=== PATIENT | female | born 1980 | race Hispanic/Latino ===

== ENCOUNTER 2017-06-18 07:14 | Inpatient (IN) ==
[2017-06-18] MEDS ORDERED: ZOFRAN IV ONE (07:41)
[2017-06-18] MEDS ORDERED: NS 1,000 ML IV ONE (07:41)
[2017-06-18] MEDS ORDERED: MORPHINE IV ONE (07:41)
[2017-06-18 08:01] LABS: MANUAL DIFF NEEDED? NO
[2017-06-18 08:06] LABS: BASO% 0.3 % (0.0-0.8); EOS# 0.11 X1000 (0.0-0.7); EOS% 0.9 % (0.0-10.0); HEMATOCRIT 37.3 % (37.0-47.0); HEMOGLOBIN 12.5 g/dL (12.0-16.0); IMM GRAN# 0.02 X1000 (0.0-0.04); IMM GRAN% 0.2 % (0.0-0.5); LYMPH# 1.54 X1000 (1.2-3.4); MCH 27.1 PG (27-31); MCHC 33.5 g/dL (33-37); MCV 80.9 FL (81-99); MONO# 0.43 X1000 (0.11-0.59); MONO% 3.6 % (1.7-9.3); MPV 11.8 FL (7.4-10.4); PLT 230 X1000 (130-400); RBC 4.61 XMIL (4.2-5.4)
[2017-06-18 08:28] LABS: AGAP 9; ALKALINE PHOSPHATASE 98 U/L (32-104); AMYLASE 62 U/L (20-200); BUN 8 mg/dL (8-22); CALCIUM 8.5 mg/dL (8.8-10.2); CHLORIDE 101 mmol/L (98-107); COSMO 266; GOT 23 U/L (10-30); GPT 19 U/L (10-36); LIPASE 32 U/L (13-60); POTASSIUM 3.5 mmol/L (3.5-5.1); SODIUM 133 mmol/L (136-145); TCO2 24 mmol/L (25-35); TOTAL PROTEIN 7.8 g/dL (6.3-8.3)
--- NOTE | 2017-06-18 09:40 | Diag Imaging Result Doc PS360 ---
US GB < RUQ (LIMITED) - 06/18/2017 INDICATION: RUQ pain with N/V TECHNIQUE: COMPARISON: None FINDINGS: There are numerous relatively small shadowing gallstones filling about one third of the gallbladder lumen. No gallbladder wall thickening or surrounding free fluid. However, the patient is tender over the gallbladder. Common bile duct is normal measuring 4 mm. There is diffuse fatty change of the liver. Pancreas is obscured. Right kidney is normal. Aorta, IVC, and main portal vein are patent. IMPRESSION: 1. Numerous small gallstones in the gallbladder. Nonspecific tenderness over the gallbladder. 2. Hepatic steatosis. Electronically signed by Justin Jolley 06/18/2017 9:37 AM
--- NOTE | 2017-06-18 10:31 | Diag Imaging Result Doc PS360 ---
CT ABD/PELVIS W/ IV CONT ONLY - 06/18/2017 INDICATION: And pain TECHNIQUE: A CT dose reduction protocol was used. COMPARISON: Gallbladder ultrasound earlier today FINDINGS: The gallbladder is slightly distended. The slightly hyperdense material dependently in the gallbladder represents the shadowing stones visible on the ultrasound. No significant surrounding edema or fluid. There is a tiny cyst in the anterior liver measuring about 1 cm. The pancreas, spleen, adrenals, and kidneys are normal. There is moderate constipation of the proximal colon. No bowel obstruction or inflammation visible. Trace pelvic free fluid. Urinary bladder, uterus, and rectum are normal. Bones are intact. IMPRESSION: 1. Gallstones. Slightly abnormally distended gallbladder. A HIDA scan would be useful to exclude acute cholecystitis. 2. Constipation. Electronically signed by Jutsin Jolley 06/18/2017 10:29 AM
[2017-06-18] MEDS ORDERED: DILAUDID IV ONE (10:42)
[2017-06-18] MEDS ORDERED: ZOSYN 3.375 GM/NS 3.375 GM/50 ML IVPB IV ONE (10:42)
--- NOTE | 2017-06-18 10:45 | PROVIDER DOCUMENTATION ---
This chart was entered by Min Amador Scribe, acting as scribe for Hiram Clinton MD. HPI-Abdominal Pain/GI Problem - General Chief Complaint: Back Pain Stated Complaint: BACK PAIN Time Seen by Provider: 06/18/17 07:27 Source: patient, family Allergies/Adverse Reactions: Patient Allergies Allergy/AdvReac Type Severity Reaction Status Date / Time No Known Allergies Allergy Verified 06/18/17 07:21 Home Medications: Home Medication List Medication Instructions Recorded Confirmed Last Taken Type NK [No Home Medications] 06/18/17 06/18/17 Unknown History - History of Present Illness-ABD Nature of Presenting Problems: patient is a 37 y/o F that comes in with RUQ pain that radiates to right shoulder back. pain began last pm. no n/v/d, fever/chills, or shortness of breath. Abdominal Pain Onset Location: reports: RUQ Pain Radiation: reports: shoulder (right) Quality of Pain: reports: cramping, sharp Severity in ED: reports: moderate Onset/Duration: reports: abrupt, last night Timing: reports: still present, constant Activities at Onset: reports: none Modifying Factors: improves with: nothing Associated Symptoms: reports: back/neck pain, nausea. denies: diarrhea, dizziness, fever/chills, genitourinary problems, loss of appetite, shortness of breath, vomiting Similar Symptoms Previously?: No Recently seen or treated by another doctor?: No Review of Systems - Adult - REVIEW OF SYSTEMS - ADULT Constitutional: denies: chills, fever Eyes: reports: no symptoms reported Ears, Nose, Mouth & Throat: denies: ear discharge, ear pain, sinus problem, throat pain, throat swelling Cardiovascular: denies: chest pain, palpitations, syncope Respiratory: denies: cough, shortness of breath, wheezing Gastrointestinal: reports: abdominal pain, nausea. denies: diarrhea, vomiting Genitourinary: denies: dysuria, frequency, hematuria Musculoskeletal: denies: back pain, joint pain, neck pain Integumentary: reports: no symptoms reported Neurological: reports: no symptoms reported Psychiatric: reports: no symptoms reported Endocrine: reports: no symptoms reported Hematologic/Lymphatic: reports: no symptoms reported Allergic/Immunologic: reports: no symptoms reported All Other Systems: Reviewed and Negative Past History - Adult - PAST MEDICAL HISTORY-ADULT Review of Records: reports: Old Records Reviewed, Nursing Assessment Review, Medications Reviewed - PRIOR SURGERIES/PROCEDURES Surgical/Procedure History: reports: none - IMMUNIZATION STATUS Childhood Immunizations: See Nurse Assessment Flu Vaccine: See Nurse Assessment - FAMILY HISTORY Family History: reviewed, not pertinent - SOCIAL HISTORY Smoking: non-smoker Living Situation: family Physical Exam-General - PHYSICAL EXAM-ADULT Initial Vital Signs Reviewed: Yes - CONSTITUTIONAL General Appearance: alert, mild distress - EYES Eyes: PERRL/EOMI, pink conjunctivae - HEAD, EARS, NOSE, MOUTH & THROAT HENMT: normocephalic/atraumatic, moist mucous membranes, normal ENT inspection - NECK Neck: full range of motion, normal inspection - RESPIRATORY Respiratory: lungs clear, normal breath sounds, no respiratory distress, no accessory muscle use - CARDIOVASCULAR Cardiovascular: regular rate, rhythm, no edema - GASTROINTESTINAL (ABDOMEN) Abdominal Exam: normal bowel sounds, soft, no organomegaly, no pulsatile mass, tenderness (RUQ), Cabello's sign - MUSCULOSKELETAL Back Exam: no CVA tenderness, no vertebral tenderness Extremity: normal range of motion, normal inspection, no pedal edema - SKIN Integumentary: normal color, warm/dry - NEUROLOGIC Neurologic: broach trouble shooter II-XII nml as tested, no motor/sensory deficits - PSYCHIATRIC Psych/Mental Status: normal mood/affect, normal thought content, normal thought process, oriented x 3 Progress - PLAN OF CARE/RESULTS Progress/Plan/Lab Results: Vital Signs - 8 hr 06/18/17 07:19 Temperature 97.0 F L Pulse Rate 71 Respiratory Rate 18 Blood Pressure 102/72 O2 Sat by Pulse Oximetry 100 Laboratory Results - last 24 hr 06/18/17 06/18/17 07:53 07:53 WBC 11.86 H RBC 4.61 Hgb 12.5 Hct 37.3 MCV 80.9 L MCH 27.1 MCHC 33.5 RDW Std Deviation 14.6 H Plt Count 230 MPV 11.8 H Immature Gran % (Auto) 0.2 Neut % (Auto) 82.0 H Lymph % (Auto) 13.0 L [place] % (Auto) 3.6 Eos % (Auto) 0.9 Baso % (Auto) 0.3 Immature Gran # (Auto) 0.02 Neut # (Auto) 9.73 H Lymph # (Auto) 1.54 [place] # (Auto) 0.43 Eos # (Auto) 0.11 Baso # (Auto) 0.03 Sodium 133 L Potassium 3.5 Chloride 101 Carbon Dioxide 24 L Anion Gap 9 BUN 8 Creatinine 0.4 L Estimated GFR/1.73 m2 > 60 BUN/Creatinine Ratio 20 Glucose 117 H Calculated Osmolality 266 Calcium 8.5 L Total Bilirubin 0.30 AST 23 ALT 19 Alkaline Phosphatase 98 Total Protein 7.8 Albumin 4.0 Globulin 4.0 Albumin/Globulin Ratio 1.0 Amylase 62 Lipase 32 Orders Category Date Time Status Saline Loc DIRECTED Care 06/18/17 07:41 Active NPO Diet 06/18/17 07:41 Active US GB < RUQ (LIMITED) [US] Stat Exams 06/18/17 07:41 Ordered AMYLASE [CHEM] Stat Lab 06/18/17 07:53 Completed CBC WITH ELECTRONIC DIFF [HEME] Stat Lab 06/18/17 07:53 Completed COMPREHENSIVE METABOLIC PANEL [CHEM] Stat Lab 06/18/17 07:53 Completed LIPASE [CHEM] Stat Lab 06/18/17 07:53 Completed TEST-URINE [PREG] Stat Lab 06/18/17 07:[address] W/POSS RFLX CULT [URINALYSIS] Stat Lab 06/18/17 07:41 Ordered 0.9% Sodium Chloride Inj [Ns] 1,000 ml Med 06/18/17 07:41 Discontinued IV 999 mls/hr Morphine Med 06/18/17 07:41 Discontinued 4 mg IV NOW ONE Ondansetron [Zofran] Med 06/18/17 07:41 Discontinued 4 mg IV NOW ONE Vital Signs Temp Pulse Resp BP Pulse Ox 06/18/17 07:19 97.0 F L 71 18 102/72 100 No Known Allergies Allergy (Verified 06/18/17 07:21) NK [No Home Medications] 06/18/17 Dietary Diet NPO Start SatJun 18 741 Laboratory 06/18/17 06/18/17 07:53 07:53 WBC 11.86 H RBC 4.61 Hgb 12.5 Hct 37.3 MCV 80.9 L MCH 27.1 MCHC 33.5 RDW Std Deviation 14.6 H Plt Count 230 MPV 11.8 H Immature Gran % (Auto) 0.2 Neut % (Auto) 82.0 H Lymph % (Auto) 13.0 L [place] % (Auto) 3.6 Eos % (Auto) 0.9 Baso % (Auto) 0.3 Immature Gran # (Auto) 0.02 Neut # (Auto) 9.73 H Lymph # (Auto) 1.54 [place] # (Auto) 0.43 Eos # (Auto) 0.11 Baso # (Auto) 0.03 Sodium 133 L Potassium 3.5 Chloride 101 Carbon Dioxide 24 L Anion Gap 9 BUN 8 Creatinine 0.4 L Estimated GFR/1.73 m2 > 60 BUN/Creatinine Ratio 20 Glucose 117 H Calculated Osmolality 266 Calcium 8.5 L Total Bilirubin 0.30 AST 23 ALT 19 Alkaline Phosphatase 98 Total Protein 7.8 Albumin 4.0 Globulin 4.0 Albumin/Globulin Ratio 1.0 Amylase 62 Lipase 32 pt will be admitted to hospital to service, kerri given. Result Diagrams: 06/18/17 07:53 06/18/17 07:53 - CT/MRI 1 CT Study: Abdomen, Pelvis Impression: Abnormal CT Results: gallstones, slight distended gallbladder, constipation - ULTRASOUND (By Radiology) 1 US Study: Gallbladder Impression: Abnormal US Results: small gallstones(numerous), heptatic stenosis - CONSULTS/PCP/HOSPITALIST Notification #1 *Consult/PCP/Hospitalist*: Time Discussed: 10:39 Reason/Comments: send to [facility]. give kerri, will operate tomorrow Consult Disposition: Admit Departure - Departure Date of Disposition Decision: 06/18/17 Time of Disposition Decision: 10:43 DIAGNOSIS: Acute cholecystitis Disposition: ADMITTED INPATIENT 09 Certified Medical Emergency: Emergent Condition: Stable Referrals and Follow-Ups: None,PCP [Primary Care Provider] - - Critical Care Note This patient required my direct & personal management of CC.: No Attestation - Physician/ SCOTT Attestation The physician spent face to face time with patient:: Yes Advanced Practice Provider documentation review:: Supervising physician onsite and consulted in the evaluation and care of this patient. The physician did have a face to face encounter with the patient. This chart was documented by the indicated scribe, (Min Amador, Perla) and accurately reflects the services I performed and decisions made by me, Hiram Clinton MD, as attested by the provider's signature.
[2017-06-18 11:14] LABS: URINE CULTURE PL NEEDED? NO
[2017-06-18 11:37] LABS: BILIRUBIN URINE NEGATIVE (NEGATIVE); BLOOD URINE NEGATIVE (NEGATIVE); CLARITY CLEAR (CLEAR); COLOR YELLOW; GLUCOSE URINE NEGATIVE (NEGATIVE); LEUKOCYTES URINE NEGATIVE (NEGATIVE); NITRITE URINE NEGATIVE (NEGATIVE); PROTEIN URINE NEGATIVE (NEGATIVE); SP GRAVITY URINE 1.015; UROBILINOGEN URINE NORMAL
[2017-06-18 11:38] LABS: URINE CAST NONE SEEN /LPF; URINE CRYSTAL NONE SEEN /HPF; URINE EPITHELIAL CELLS <10 /HPF (<10); URINE RBC <10 /HPF (<10); URINE SOURCE CLEAN CATCH; URINE WBC <10 /HPF (<10)
[2017-06-18] MEDS ORDERED: ZOFRAN IV PRN (13:10)
--- NOTE | 2017-06-18 16:06 | HISTORY AND PHYSICAL ---
ADMITTING DIAGNOSIS: Cholecystitis. HISTORY OF PRESENT ILLNESS: A 37-year-old, female presented to the emergency department with right upper quadrant pain that radiated to her right shoulder and back that began 24 hours prior to presentation. She denies nausea, vomiting, diarrhea, fever, chills or shortness of breath. The pain is described as in the right upper quadrant. It is sharp and moderate in intensity. It has improved with pain medicine and she feels better somewhat since she has been admitted. She had a CT scan and ultrasound done in the emergency department at [facility] and she was found to have cholecystitis. It was felt that she need to be transferred here for definitive care. PAST MEDICAL HISTORY: None. PAST SURGICAL HISTORY: None. FAMILY HISTORY: Reviewed with patient but noncontributory. SOCIAL HISTORY: Nonsmoker. ALLERGIES: None. HOME MEDICATIONS: None. REVIEW OF SYSTEMS: A full 10 point review of systems was obtained and negative as specified in HPI. PHYSICAL EXAMINATION: VITAL SIGNS: Patient is currently afebrile. Her vital signs are stable. GENERAL EXAMINATION: In no acute distress. Alert, oriented, female, looks stated age. HEENT: Normocephalic, atraumatic. Pupils equal, round, reactive to light. Mucous membranes moist. Oropharynx benign. NECK: Supple. Trachea midline. CARDIOVASCULAR: Regular rate and rhythm. LUNGS: Clear. ABDOMEN: Soft, tender to palpation at the right upper quadrant. No peritoneal signs. EXTREMITIES: Moves all extremities. NEUROLOGIC: Grossly intact. SKIN: No signs of jaundice. VASCULAR: All extremities perfused. LABORATORY: Reviewed. Of note, patient's white blood cell count was 11, hematocrit 37, platelet count 230,000. LFTs all within normal limits. Ultrasound and CT scan independently reviewed, and Radiology report reviewed. Both are concerning for cholecystitis. ASSESSMENT/PLAN: A 37-year-old, female with cholecystitis. Cholecystitis: At this time we will admit the patient and keep her on IV antibiotics. Plan for surgical intervention in the morning. We discussed with her the risks, benefits, alternatives for the procedure. All questions were answered. cc: Kiran Cardoso MD
[2017-06-18] MEDS: ZOSYN 3.375 GM/NS 3.375 GM/50 ML IVPB IV SCH ×2 (17:11→22:19)
[2017-06-18] MEDS: LR 1,000 ML IV SCH ×2 (17:11→22:23)
[2017-06-18] MEDS: MORPHINE IV PRN ×3 (18:02→22:18)
[2017-06-19] MEDS: BENADRYL IV PRN ×2 (02:51→16:17)
[2017-06-19] MEDS: ZOSYN 3.375 GM/NS 3.375 GM/50 ML IVPB IV SCH ×4 (04:23→22:11)
[2017-06-19] MEDS: LR 1,000 ML IV SCH ×3 (04:23→18:58)
--- NOTE | 2017-06-19 06:12 | PROGRESS NOTE ---
DATE: 06/19/2017 SUBJECTIVE: Patient doing okay. Resting comfortably. OBJECTIVE: Vital Signs: Patient is currently afebrile. Her vital signs have been stable. General Examination: No acute distress. Resting comfortably. HEENT: Normocephalic and atraumatic. Pupils equal, round, reactive to light. Mucous membranes moist. Oropharynx benign. Neck: Supple. Trachea midline. Cardiovascular: Regular rate and rhythm. Lungs: Grossly clear. Abdomen: Soft. Less tender in the right upper quadrant but still present. Extremities: Moves all extremities. Neurologic: Grossly intact. Skin: No signs of jaundice. Vascular: All extremities perfused. Laboratory: None for this morning. ASSESSMENT AND PLAN: A 37-year-old, female with acute cholecystitis. Acute cholecystitis. At this time, we will plan on surgical intervention today. The risks, benefits, and alternatives were discussed. All questions answered. cc: Kiran Cardoso MD
[2017-06-19] MEDS ORDERED: SENSORCAINE 0.25%/EPI 1:200,000 ONE (11:43)
[2017-06-19] MEDS ORDERED: SODIUM CHLORIDE 0.9% ONE (11:43)
[2017-06-19] MEDS ORDERED: XYLOCAINE 1% ONE (11:43)
[2017-06-19] MEDS ORDERED: LR 1,000 ML ONE (11:44)
[2017-06-19] MEDS ORDERED: XYLOCAINE-MPF 2% ONE (11:52)
[2017-06-19] MEDS ORDERED: FENTANYL ONE (11:52)
[2017-06-19] MEDS ORDERED: DIPRIVAN 1% ONE (11:52)
[2017-06-19] MEDS ORDERED: QUELICIN (DOSE) ONE (11:52)
[2017-06-19] MEDS ORDERED: NORCURON ONE (12:20)
[2017-06-19] MEDS ORDERED: PEPCID ONE (12:48)
[2017-06-19] MEDS ORDERED: MORPHINE ONE ×2 (13:40→13:48)
[2017-06-19] MEDS ORDERED: ZOFRAN ONE (13:59)
[2017-06-19] MEDS ORDERED: SODIUM CHLORIDE 0.9% 10 ML ONE (14:09)
[2017-06-19] MEDS: PHENERGAN ONE ×2 (14:10→14:15)
--- NOTE | 2017-06-19 14:11 | OPERATIVE NOTE ---
PROCEDURE DATE: 06/19/2017 PREOPERATIVE DIAGNOSIS: Acute cholecystitis. POSTOPERATIVE DIAGNOSIS: Acute cholecystitis. PROCEDURE: Laparoscopic cholecystectomy. SURGEON: Kiran Cardoso MD. CHILDREN'S MINISTER: Dr. Yeung. Dr. Yeung assisted for the entirety of the case. ANESTHESIA: General endotracheal. OPERATIVE FINDINGS: Multiple stones were encountered in the gallbladder and the gallbladder was acutely inflamed. COMPLICATION: None at time of dictation. ESTIMATED BLOOD LOSS: 50 mL. SPECIMENS REMOVED: Gallbladder and contents. DRAINS: 19-Italian drain. BRIEF HISTORY: The patient is a 37-year-old female presenting with abdominal pain in the right upper quadrant. It is felt that she had cholecystitis. The risks, benefits, alternatives for the procedure were discussed. All questions answered. DESCRIPTION OF THE PROCEDURE: After informed consent was obtained, patient brought to the operative theatre, transferred to operating table, placed in supine position. General endotracheal anesthesia was then performed without complication. A formal time-out was then performed confirming patient, date, procedure. All were in agreement. At that time, attention turned to the abdomen. Using the Optiview technique we initially made an incision infraumbilically after anesthetizing the skin, put an 11 mm trocar in, and using Optiview technique connected to insufflation. Pneumoperitoneum was achieved. Under direct visualization, placed 3 more trocars, all 5 mm, 1 in the subxiphoid, 2 in the right upper quadrant. Using these, the gallbladder was identified, retracted cephalad to facilitate exposure. We did suction out some of the gallbladder contents which did allow some stones to drain out of the abdomen but were able to elevate the gallbladder and dissect out the cystic duct and cystic artery. The cystic duct was too small to do a cholangiogram so we doubly clipped and ligated it and the cystic artery. There was a large node of Calot encountered. We then dissected the gallbladder off the gallbladder fossa, placed it into an endobag with the majority of the stones placed in an endobag also. We do retrieve additional stones at the completion of the case but there were some stones left in her abdomen. We brought the gallbladder out through the infraumbilical incision which had to be enlarged slightly to accommodate the stone burden. We then irrigated out the abdomen copiously. Given the dense inflammatory process occurring we elected to place a drain. We tunneled it from the most lateral trocar site and placed in the gallbladder fossa, secured it to the skin. We removed all trocars, disconnected insufflation. Pneumoperitoneum was released. We then closed the infraumbilical incision with a [id number] 0 Vicryl with good results. We then irrigated all incisions and closed with 4-0 Monocryl. The patient tolerated procedure well and was transferred to recovery room in stable condition. Postoperatively, we will keep her on antibiotics. We will watch her another day in the hospital given her inflammation. cc: Kiran Cardoso MD
[2017-06-19] MEDS ORDERED: NORCO-10 PO PRN (14:41)
[2017-06-19] MEDS: MORPHINE IV PRN ×2 (18:52→22:11)
[2017-06-19] MEDS: PERIDEX MT SCH (20:36)
[2017-06-20] MEDS: MORPHINE IV PRN ×2 (03:48→05:57)
[2017-06-20] MEDS: LR 1,000 ML IV SCH (05:51)
[2017-06-20] MEDS: ZOSYN 3.375 GM/NS 3.375 GM/50 ML IVPB IV SCH ×2 (05:51→11:09)
--- NOTE | 2017-06-20 07:02 | PROGRESS NOTE ---
DATE: 06/20/2017 SUBJECTIVE: The patient reports some pain in her right upper quadrant. OBJECTIVE: Vital Signs: The patient is currently afebrile. Her vital signs have been stable. BASIM drain has 100 of serosanguineous fluid coming out of it. General: No acute distress. Resting comfortably. HEENT: Normocephalic, atraumatic. Pupils equal, round, and reactive to light. Mucous membranes moist. Oropharynx benign. Neck: Supple. Trachea midline. Cardiovascular: Regular rate and rhythm. Lungs: Grossly clear. Abdomen: Soft, appropriately tender to the right upper quadrant, tender around her drain, tender around her umbilicus. Incisions appear to be healing well. BASIM with serosanguineous output. LABORATORY DATA: None this morning. ASSESSMENT AND PLAN: A 37-year-old female status post laparoscopic cholecystectomy for acute cholecystitis. Postoperative state. At this time, would like to keep the patient on antibiotics until this afternoon, and reassess potential for discharged home. She has a Lucho-Velazquez drain in place, and we will monitor her for any kind of signs of biliary leak, but at this time, it is serosanguineous. cc: Kiran Cardoso MD
[2017-06-20] MEDS: PERIDEX MT SCH (11:10)
[2017-06-20 15:47] VITALS: BP 104/64
== END 2017-06-20 16:28 | disposition home or self-care (01) ==
LOC: P.ED 07:14 → OBSVTOIN 07:15 → 4N 07:15 → INTOOBSV 07:15
PROVIDERS: ADMIT Surgery; ATTEND Surgery